=== PATIENT | male | born 1955 | race Caucasian/White ===

== ENCOUNTER 2017-06-28 15:40 | Emergency (ER) | payer OTHER ==
[~2017-06-28] VITALS: Ht 170.2 cm; Wt 86.3 kg
[2017-06-28] MEDS ORDERED: METO-325 PO (16:08)
[2017-06-28] MEDS ORDERED: CLOT15CR5 TP (16:08)
[2017-06-28] MEDS ORDERED: PRAV40 PO (16:08)
[2017-06-28] MEDS ORDERED: DOXA2TAB PO (16:08)
[2017-06-28] MEDS ORDERED: ASPI-556 PO (16:08)
[2017-06-28] MEDS ORDERED: LOSA50TA37 PO (16:08)
[2017-06-28] MEDS ORDERED: NITR.4 SL (16:14)
[2017-06-28 19:10] LABS: BASOPHILS % (AUTO) 0.3 % (0.0-2.0); EOSINOPHILS % (AUTO) 0.9 % (1.0-6.0); HEMATOCRIT 39.8 % (41-53); HEMOGLOBIN 13.3 g/dL (13.5-17.5); LYMPHOCYTES # (AUTO) 2.2 K/uL (1.0-4.8); LYMPHOCYTES % (AUTO) 23.3 % (22.0-44.0); MEAN CORPUSCULAR HEMOGLOBIN 29.9 pg (26.0-34.0); MEAN CORPUSCULAR HGB CONC 33.3 G/dL (31.0-37.0); MEAN CORPUSCULAR VOLUME 90 fL (80-100); MONOCYTES # (AUTO) 0.3 K/uL (0.1-1.0); MONOCYTES % (AUTO) 3.3 % (2.0-9.0); NEUTROPHILS # (AUTO) 6.7 K/uL (1.8-7.7); NEUTROPHILS % (AUTO) 72.2 % (40.0-70.0); PLATELET COUNT (AUTO) 255 K/uL (150-450); RED BLOOD CELL COUNT(AUTO) 4.44 MIL/uL (4.50-5.90); WHITE BLOOD COUNT (AUTO) 9.3 K/uL (4.5-11.0)
[2017-06-28] MEDS ORDERED: ASPIRIN 325 MG EC TABLET PO ONE (19:15)
[2017-06-28] MEDS ORDERED: NITROGLYCERIN 2% (1 GM=INCH) PACKET TP ONE (19:15)
[2017-06-28] MEDS ORDERED: DEXAMETHASONE SOD PHOS 4 MG/ML 5 ML VIAL IVP ONE (19:15)
[2017-06-28] MEDS ORDERED: FUROSEMIDE 40 MG/4 ML VIAL IVP ONE (19:15)
[2017-06-28 19:20] LABS: ANION GAP 9 mmol/L (8-16); CALCIUM, TOTAL 8.6 mg/dL (8.8-10.5); CARBON DIOXIDE 27 mmol/L (22-29); CHLORIDE 102 mmol/L (98-107); GLOMERULAR FILTR. RATE CALC > 60 mL/min (>60); POTASSIUM 3.3 mmol/L (3.5-5.1); SODIUM SERUM 138 mmol/L (136-145); UREA NITROGEN, BLOOD 10 mg/dL (7-18)
[2017-06-28 19:26] LABS: ALANINE AMINOTRANSFERASE 26 U/L (12-78); ALBUMIN 2.6 g/dL (3.4-5.0); ASPARTATE AMINOTRANSFERASE 17 U/L (15-37); BILIRUBIN,TOTAL 0.2 mg/dL (0.1-1.0); TOTAL PROTEIN, SERUM 6.8 g/dL (6.4-8.2)
[2017-06-28 19:31] LABS: B-TYPE NATRIURETIC PEPTIDE < 5 pg/mL (0-100)
[2017-06-28 20:00] VITALS: BP 129/49
[2017-06-28 20:36] LABS: GLUCOSE, URINE (UA) NEGATIVE (NEGATIVE); KETONES,URINE NEGATIVE (NEGATIVE); LEUKOCYTE ESTERASE ,URINE NEGATIVE (NEGATIVE); OCCULT BLOOD,URINE NEGATIVE (NEGATIVE); PROTEIN,URINE NEGATIVE (NEGATIVE)
[2017-06-28 20:37] LABS: ADD UA MICROSCOPIC NO; APPEARANCE,URINE CLEAR (CLEAR)
== END 2017-06-28 20:54 | disposition home or self-care (01) ==
LOC: EMS 15:46
DX: L50.0 Allergic urticaria (principal); R07.2 Precordial pain; E78.00 Pure hypercholesterolemia, unspecified; I10 Essential (primary) hypertension; F17.210 Nicotine dependence, cigarettes, uncomplicated; Z86.73 Personal history of transient ischemic attack (TIA), and cerebral infarction without residual deficits; Z79.82 Long term (current) use of aspirin
CPT/HCPCS: 36415; 71010; 80053; 81003; 83690; 83880; 84484; 85025; 93005; 96374; 96375; 99285; J1100; J1940

== ENCOUNTER 2019-02-01 23:02 | Emergency (ER) | payer OTHER ==
[~2019-02-01] VITALS: Ht 170.2 cm; Wt 85.9 kg
[~2019-02-01 23:02] MED LIST: ASPI-556 PO; CLOT15CR5 TP; DOXA2TAB PO; LOSA50TA64 PO; METO-558 PO; NITR.4 SL; PRAV40TA4 PO
[2019-02-01] MEDS ORDERED: OMEP20 PO (23:14)
[2019-02-01] MEDS ORDERED: CHOL200059 PO (23:14)
[2019-02-01] MEDS ORDERED: ATOR40TA28 PO (23:14)
[2019-02-01] MEDS ORDERED: CYCL10 PO (23:14)
[2019-02-01] MEDS ORDERED: METO50 PO (23:14)
[2019-02-02] MEDS ORDERED: SULFAMETHOX/TRIMETH DS 800-160 MG/TABLET PO ONE (03:15)
[2019-02-02] MEDS ORDERED: CEPHALEXIN MONOHYDRATE 500 MG CAPSULE PO ONE (03:15)
[2019-02-02 03:58] VITALS: BP 137/88
== END 2019-02-02 03:59 | disposition home or self-care (01) ==
LOC: EMS 23:03
DX: S50.862A Insect bite (nonvenomous) of left forearm, initial encounter (principal); S30.861A Insect bite (nonvenomous) of abdominal wall, initial encounter; L73.9 Follicular disorder, unspecified; K21.9 Gastro-esophageal reflux disease without esophagitis; E78.00 Pure hypercholesterolemia, unspecified; I10 Essential (primary) hypertension; Z86.73 Personal history of transient ischemic attack (TIA), and cerebral infarction without residual deficits; Z79.82 Long term (current) use of aspirin; W57.XXXA Bitten or stung by nonvenomous insect and other nonvenomous arthropods, initial encounter; Y93.89 Activity, other specified; Y92.89 Other specified places as the place of occurrence of the external cause; Y99.8 Other external cause status

== ENCOUNTER 2019-03-18 20:30 | Emergency (ER) | payer OTHER ==
[~2019-03-18] VITALS: Ht 170.2 cm; Wt 85.9 kg
[~2019-03-18 20:30] MED LIST changes: +ATOR40TA28 PO; +CHOL200059 PO; -CLOT15CR5 TP; +CYCL10 PO; -LOSA50TA64 PO; -METO-558 PO; +METO50 PO; +OMEP20 PO; -PRAV40TA4 PO
[2019-03-18] MEDS ORDERED: CEPHALEXIN MONOHYDRATE 500 MG CAPSULE PO ONE (21:45)
[2019-03-18] MEDS ORDERED: IBUPROFEN 800 MG TABLET PO ONE (21:45)
[2019-03-18 21:52] VITALS: BP 140/90
== END 2019-03-18 21:54 | disposition home or self-care (01) ==
LOC: EMS 20:30
DX: L03.114 Cellulitis of left upper limb (principal); K21.9 Gastro-esophageal reflux disease without esophagitis; I10 Essential (primary) hypertension; E78.00 Pure hypercholesterolemia, unspecified; F17.210 Nicotine dependence, cigarettes, uncomplicated; Z79.82 Long term (current) use of aspirin

== ENCOUNTER 2019-08-21 03:25 | Inpatient (IN) | payer OTHER ==
[~2019-08-21] VITALS: Ht 170.2 cm; Wt 82.7 kg
[~2019-08-21 03:25] MED LIST changes: -NITR.4 SL; +NITR0.4T52 SL
[2019-08-21] MEDS ORDERED: DOXYCYCLINE HYCLATE 100 MG CAPSULE PO ONE (03:45)
[2019-08-21 04:18] LABS: BASOPHILS % (AUTO) 0.7 % (0.0-2.0); EOSINOPHILS % (AUTO) 3.2 % (1.0-6.0); HEMATOCRIT 41.2 % (41-53); HEMOGLOBIN 13.4 g/dL (13.5-17.5); LYMPHOCYTES # (AUTO) 2.5 K/uL (1.0-4.8); LYMPHOCYTES % (AUTO) 28.6 % (22.0-44.0); MEAN CORPUSCULAR HEMOGLOBIN 30.1 pg (26.0-34.0); MEAN CORPUSCULAR HGB CONC 32.6 G/dL (31.0-37.0); MEAN CORPUSCULAR VOLUME 92 fL (80-100); MONOCYTES # (AUTO) 0.8 K/uL (0.1-1.0); NEUTROPHILS # (AUTO) 5.1 K/uL (1.8-7.7); NEUTROPHILS % (AUTO) 58.5 % (40.0-70.0); PLATELET COUNT (AUTO) 216 K/uL (150-450); RED BLOOD CELL COUNT(AUTO) 4.46 MIL/uL (4.50-5.90); RED CELL DISTRIBUTION WIDTH 13.4 % (11.5-14.5)
[2019-08-21 04:31] LABS: GLUCOSE,POINT OF CARE 100 MG/DL (70-110)
[2019-08-21 04:34] LABS: AMMONIA 40 umol/L (11-32)
[2019-08-21 04:45] LABS: TROPONIN I < 0.02 ng/mL (0.00-0.05)
[2019-08-21 04:50] LABS: ANION GAP 7 mmol/L (8-16); CALCIUM, TOTAL 8.7 mg/dL (8.8-10.5); CARBON DIOXIDE 29 mmol/L (22-29); CHLORIDE 106 mmol/L (98-107); CREATININE 1.16 mg/dL (0.60-1.30); GLOMERULAR FILTR. RATE CALC > 60 mL/min (>60); GLUCOSE,RANDOM 91 mg/dL (70-110); POTASSIUM 3.7 mmol/L (3.5-5.1); SODIUM SERUM 142 mmol/L (136-145); UREA NITROGEN, BLOOD 15 mg/dL (7-18)
[2019-08-21 04:57] LABS: ALANINE AMINOTRANSFERASE 26 U/L (12-78); ALBUMIN 3.4 g/dL (3.4-5.0); ALKALINE PHOSPHATASE 116 U/L (46-116); ASPARTATE AMINOTRANSFERASE 12 U/L (15-37); BILIRUBIN,TOTAL 0.4 mg/dL (0.1-1.0); TOTAL PROTEIN, SERUM 6.6 g/dL (6.4-8.2)
[2019-08-21] MEDS ORDERED: ACETAMINOPHEN 325 MG TABLET PO PRN ×2 (06:15→10:15)
[2019-08-21] MEDS ORDERED: ONDANSETRON HCL 4 MG/2 ML VIAL IVP PRN (06:15)
[2019-08-21 10:11] LABS: APPEARANCE,URINE CLEAR (CLEAR); GLUCOSE, URINE (UA) NEGATIVE (NEGATIVE); KETONES,URINE NEGATIVE (NEGATIVE); LEUKOCYTE ESTERASE ,URINE NEGATIVE (NEGATIVE); NITRATE,URINE NEGATIVE (NEGATIVE); OCCULT BLOOD,URINE NEGATIVE (NEGATIVE); PH,URINE 5.5 (5.0-8.0); PROTEIN,URINE NEGATIVE (NEGATIVE); UROBILINOGEN,URINE 0.2 mg/dL (<=1.0)
[2019-08-21 10:15] LABS: BILIRUBIN,URINE PRELIM. POSITIVE (NEGATIVE)
[2019-08-21] MEDS ORDERED: INSULIN LISPRO 100 UNITS/ML SQ PRN (10:15)
[2019-08-21] MEDS ORDERED: DEXTROSE 50%-WATER 25 GM/50 ML SYRINGE IVP PRN (10:15)
[2019-08-21 10:16] LABS: AMPHET/METH SCREEN,URINE POSITIVE (NEGATIVE); BARBITURATE SCREEN, URINE NEGATIVE (NEGATIVE); BENZODIAZEPINES SCREEN,URINE NEGATIVE (NEGATIVE); CANNABINOID SCREEN,URINE NEGATIVE (NEGATIVE); COCAINE SCREEN,URINE NEGATIVE (NEGATIVE); METHADONE SCREEN, URINE NEGATIVE (NEGATIVE); OPIATE SCREEN,URINE NEGATIVE (NEGATIVE)
[2019-08-21 10:17] LABS: PHENCYCLIDINE SCREEN,URINE NEGATIVE (NEGATIVE)
[2019-08-21] MEDS: ASPIRIN 81 MG CHEWABLE TABLET PO SCH (11:53)
[2019-08-21] MEDS: ATORVASTATIN CALCIUM 20 MG TABLET PO SCH (12:06)
[2019-08-21] MEDS: HEPARIN SODIUM,PORCINE 5,000 UNITS/ML VIAL SQ SCH ×2 (16:08→23:59)
[2019-08-21 18:10] VITALS: BP 129/84
[2019-08-21] MEDS ORDERED: PNEUMOCOCCAL VACCINE POLYVALENT 0.5 ML VIAL [PPSV23] IM ONE (18:45)
[2019-08-21] MEDS: DOCUSATE SODIUM 100 MG CAPSULE PO SCH (20:55)
[2019-08-21 23:54] VITALS: BP 146/90
[2019-08-22 05:12] VITALS: BP 146/41
[2019-08-22 06:31] LABS: GLUCOMETER DEV NAME(LOC) 5N.1; GLUCOSE,POINT OF CARE 89 MG/DL (70-110)
[2019-08-22] MEDS: HEPARIN SODIUM,PORCINE 5,000 UNITS/ML VIAL SQ SCH ×2 (08:00→15:24)
[2019-08-22] MEDS ORDERED: FAMOTIDINE 20 MG TABLET PO SCH (09:00)
[2019-08-22 09:33] VITALS: BP 131/83
[2019-08-22] MEDS: ASPIRIN 81 MG CHEWABLE TABLET PO SCH (10:02)
[2019-08-22] MEDS: DOCUSATE SODIUM 100 MG CAPSULE PO SCH (10:03)
[2019-08-22] MEDS: ATORVASTATIN CALCIUM 20 MG TABLET PO SCH (10:03)
[2019-08-22 11:33] VITALS: BP 133/79
[2019-08-22 12:46] LABS: GLUCOMETER DEV NAME(LOC) 5S.1; GLUCOSE,POINT OF CARE 105 MG/DL (70-110)
[2019-08-22 15:40] VITALS: BP 145/84
[2019-08-22 17:56] LABS: GLUCOMETER DEV NAME(LOC) 5S.2A; GLUCOSE,POINT OF CARE 97 MG/DL (70-110)
[2019-08-23 05:11] LABS: GLUCOMETER DEV NAME(LOC) 5N.1; GLUCOSE,POINT OF CARE 91 MG/DL (70-110)
== END 2019-08-22 20:00 | disposition home or self-care (01) | DRG 47 ==
LOC: EMS 03:25 → 5S 17:53
PROVIDERS: ADMIT Internal Medicine; ATTEND Internal Medicine
DX: G45.9 Transient cerebral ischemic attack, unspecified (principal); E11.9 Type 2 diabetes mellitus without complications; L03.90 Cellulitis, unspecified; E78.00 Pure hypercholesterolemia, unspecified; E78.5 Hyperlipidemia, unspecified; F15.90 Other stimulant use, unspecified, uncomplicated; I10 Essential (primary) hypertension; K21.9 Gastro-esophageal reflux disease without esophagitis; H53.8 Other visual disturbances; R27.0 Ataxia, unspecified; F17.210 Nicotine dependence, cigarettes, uncomplicated; N40.0 Benign prostatic hyperplasia without lower urinary tract symptoms; T63.301A Toxic effect of unspecified spider venom, accidental (unintentional), initial encounter; Z91.19 Patient's noncompliance with other medical treatment and regimen; Z79.899 Other long term (current) drug therapy; Z79.82 Long term (current) use of aspirin; Y92.89 Other specified places as the place of occurrence of the external cause; Z71.6 Tobacco abuse counseling
CPT/HCPCS: 70450; 70544; 70551; 92523; 93005; 97116; 97162; 97165; 97535; G0480; J1644

== ENCOUNTER 2019-09-23 23:38 | Emergency (ER) | payer OTHER ==
[~2019-09-23] VITALS: Ht 170.2 cm; Wt 81.8 kg
[~2019-09-23 23:38] MED LIST changes: -CYCL10 PO; -METO50 PO
[2019-09-24 00:01] LABS: GLUCOSE,POINT OF CARE 86 MG/DL (70-110)
[2019-09-24] MEDS ORDERED: METF-805 PO (00:01)
[2019-09-24] MEDS ORDERED: ALBU0.212 IH (00:01)
[2019-09-24] MEDS ORDERED: MONT5TAB13 PO (00:01)
[2019-09-24] MEDS ORDERED: LEVE500T8 PO (00:01)
[2019-09-24] MEDS ORDERED: METO50TA18 PO (00:01)
[2019-09-24] MEDS ORDERED: LOSA50TA65 PO (00:01)
[2019-09-24 00:35] LABS: BASOPHILS % (AUTO) 0.4 % (0.0-2.0); EOSINOPHILS % (AUTO) 3.1 % (1.0-6.0); HEMATOCRIT 39.9 % (41-53); HEMOGLOBIN 13.4 g/dL (13.5-17.5); LYMPHOCYTES # (AUTO) 2.4 K/uL (1.0-4.8); MEAN CORPUSCULAR HEMOGLOBIN 30.4 pg (26.0-34.0); MEAN CORPUSCULAR HGB CONC 33.6 G/dL (31.0-37.0); MEAN CORPUSCULAR VOLUME 91 fL (80-100); MONOCYTES # (AUTO) 0.8 K/uL (0.1-1.0); MONOCYTES % (AUTO) 9.2 % (2.0-9.0); NEUTROPHILS # (AUTO) 5.5 K/uL (1.8-7.7); NEUTROPHILS % (AUTO) 60.3 % (40.0-70.0); PLATELET COUNT (AUTO) 207 K/uL (150-450); RED CELL DISTRIBUTION WIDTH 13.5 % (11.5-14.5)
[2019-09-24 00:49] LABS: ANION GAP 2 mmol/L (8-16); CARBON DIOXIDE 33 mmol/L (22-29); CHLORIDE 104 mmol/L (98-107); CREATININE 1.04 mg/dL (0.60-1.30); GLUCOSE,RANDOM 96 mg/dL (70-110); POTASSIUM 3.9 mmol/L (3.5-5.1); SODIUM SERUM 139 mmol/L (136-145); UREA NITROGEN, BLOOD 12 mg/dL (7-18)
[2019-09-24 00:50] LABS: CALCIUM, TOTAL 8.5 mg/dL (8.8-10.5); GLOMERULAR FILTR. RATE CALC > 60 mL/min (>60)
[2019-09-24 00:53] LABS: ALANINE AMINOTRANSFERASE 28 U/L (12-78); ALBUMIN 3.3 g/dL (3.4-5.0); ALKALINE PHOSPHATASE 101 U/L (46-116); ASPARTATE AMINOTRANSFERASE 13 U/L (15-37); BILIRUBIN,TOTAL 0.4 mg/dL (0.1-1.0); TOTAL PROTEIN, SERUM 6.8 g/dL (6.4-8.2)
[2019-09-24 02:43] VITALS: BP 127/88
== END 2019-09-24 02:51 | disposition home or self-care (01) ==
LOC: EMS 23:40
DX: L73.2 Hidradenitis suppurativa (principal); E78.00 Pure hypercholesterolemia, unspecified; I10 Essential (primary) hypertension; K21.9 Gastro-esophageal reflux disease without esophagitis; F17.210 Nicotine dependence, cigarettes, uncomplicated; Z79.899 Other long term (current) drug therapy; Z86.73 Personal history of transient ischemic attack (TIA), and cerebral infarction without residual deficits; Z98.890 Other specified postprocedural states
CPT/HCPCS: 93005

== ENCOUNTER 2019-11-26 21:27 | Emergency (ER) | payer OTHER ==
[~2019-11-26] VITALS: Ht 168.9 cm; Wt 83.2 kg
[~2019-11-26 21:27] MED LIST changes: +ALBU0.212 IH; +CHOL200016 PO; -CHOL200059 PO; +LEVE500T8 PO; +LOSA50TA65 PO; +METF-805 PO; +METO50TA18 PO; +MONT5TAB13 PO
[2019-11-26 22:22] LABS: GLUCOSE,POINT OF CARE 145 MG/DL (70-110)
[2019-11-27] MEDS ORDERED: FLUC100T PO (00:08)
[2019-11-27] MEDS ORDERED: UMEC62.5 IH (00:08)
[2019-11-27 00:20] LABS: GLUCOSE,POINT OF CARE 132 MG/DL (70-110)
[2019-11-27] MEDS ORDERED: LIDOCAINE/PRILOCAINE 2.5% 30 GM CREAM TP ONE (01:30)
[2019-11-27] MEDS ORDERED: LORazepam 1 MG TABLET PO ONE (03:00)
[2019-11-27] MEDS ORDERED: FentaNYL CITRATE-PF 100 MCG/2 ML VIAL IVP ONE (03:30)
[2019-11-27 04:05] VITALS: BP 122/64
[2019-11-27] MEDS ORDERED: CEPHALEXIN MONOHYDRATE 500 MG CAPSULE PO ONE (04:45)
[2019-11-27] MEDS ORDERED: SULFAMETHOX/TRIMETH DS 800-160 MG/TABLET PO ONE (04:45)
== END 2019-11-27 05:02 | disposition home or self-care (01) ==
LOC: EMS 21:28
DX: L02.412 Cutaneous abscess of left axilla (principal); J44.9 Chronic obstructive pulmonary disease, unspecified; E11.9 Type 2 diabetes mellitus without complications; K21.9 Gastro-esophageal reflux disease without esophagitis; E78.00 Pure hypercholesterolemia, unspecified; I10 Essential (primary) hypertension; F17.210 Nicotine dependence, cigarettes, uncomplicated; Z86.73 Personal history of transient ischemic attack (TIA), and cerebral infarction without residual deficits; Z79.82 Long term (current) use of aspirin; Z79.84 Long term (current) use of oral hypoglycemic drugs
CPT/HCPCS: 10060; 82962; 96374; 99284; J3010

== ENCOUNTER 2020-05-07 12:31 | Emergency (ER) | payer OTHER ==
[~2020-05-07] VITALS: Ht 175.3 cm; Wt 95.5 kg
[~2020-05-07 12:31] MED LIST changes: +FLUC100T PO; -LEVE500T8 PO; +UMEC62.5 IH
[2020-05-07 13:09] VITALS: BP 123/75
== END 2020-05-07 13:27 | disposition home or self-care (01) ==
LOC: EMS 12:41
DX: L03.012 Cellulitis of left finger (principal); F17.210 Nicotine dependence, cigarettes, uncomplicated; J44.9 Chronic obstructive pulmonary disease, unspecified; E11.9 Type 2 diabetes mellitus without complications; K21.9 Gastro-esophageal reflux disease without esophagitis; E78.00 Pure hypercholesterolemia, unspecified; I10 Essential (primary) hypertension; Z86.73 Personal history of transient ischemic attack (TIA), and cerebral infarction without residual deficits; Z79.82 Long term (current) use of aspirin; Z79.84 Long term (current) use of oral hypoglycemic drugs
CPT/HCPCS: 10060; 99406

== ENCOUNTER 2020-05-10 01:46 | Inpatient (IN) | payer OTHER ==
[~2020-05-10] VITALS: Ht 170.2 cm; Wt 91.7 kg
[2020-05-10] MEDS ORDERED: CefTRIAXone 1 GM/DEXTROSE 50 ML IV ONE (03:00)
[2020-05-10] MEDS ORDERED: VANCOMYCIN HCL 1 GM/D5% WATER 200 ML IV ONE ×2 (03:00→19:00)
[2020-05-10 04:09] LABS: BASOPHILS % (AUTO) 0.6 % (0.0-2.0); EOSINOPHILS % (AUTO) 4.7 % (1.0-6.0); HEMATOCRIT 41.5 % (41-53); HEMOGLOBIN 13.9 g/dL (13.5-17.5); LYMPHOCYTES # (AUTO) 2.7 K/uL (1.0-4.8); LYMPHOCYTES % (AUTO) 30.6 % (22.0-44.0); MEAN CORPUSCULAR HEMOGLOBIN 30.3 pg (26.0-34.0); MEAN CORPUSCULAR HGB CONC 33.4 G/dL (31.0-37.0); MEAN CORPUSCULAR VOLUME 91 fL (80-100); MONOCYTES # (AUTO) 0.8 K/uL (0.1-1.0); MONOCYTES % (AUTO) 9.6 % (2.0-9.0); NEUTROPHILS # (AUTO) 4.7 K/uL (1.8-7.7); NEUTROPHILS % (AUTO) 54.5 % (40.0-70.0); PLATELET COUNT (AUTO) 216 K/uL (150-450); RED BLOOD CELL COUNT(AUTO) 4.57 MIL/uL (4.50-5.90); RED CELL DISTRIBUTION WIDTH 13.5 % (11.5-14.5)
[2020-05-10 04:20] LABS: CALCIUM, TOTAL 8.5 mg/dL (8.8-10.5); CREATININE 1.54 mg/dL (0.60-1.30); POTASSIUM 4.3 mmol/L (3.5-5.1)
[2020-05-10 04:25] LABS: ALBUMIN 3.6 g/dL (3.4-5.0); BILIRUBIN,TOTAL 0.5 mg/dL (0.1-1.0)
[2020-05-10] MEDS ORDERED: 0.9% SODIUM CHLORIDE 10 ML SYRINGE IVP PRN (04:45)
[2020-05-10] MEDS ORDERED: ONDANSETRON HCL 4 MG/2 ML VIAL IVP PRN ×2 (04:45→16:15)
[2020-05-10] MEDS ORDERED: ACETAMINOPHEN 325 MG TABLET PO PRN (04:45)
[2020-05-10 12:26] LABS: GLUCOSE,POINT OF CARE 101 MG/DL (70-110)
[2020-05-10] MEDS ORDERED: MAGNESIUM HYDROXIDE SUSPENSION 30 ML UDCUP PO PRN (16:15)
[2020-05-10] MEDS ORDERED: DEXTROSE 50%-WATER 25 GM/50 ML SYRINGE IVP PRN (16:15)
[2020-05-10] MEDS ORDERED: ZOLPIDEM TARTRATE 5 MG TABLET PO PRN (16:15)
[2020-05-10] MEDS ORDERED: BISACODYL 10 MG RECTAL RECTAL SUPPOSITORY PR PRN (16:15)
[2020-05-10] MEDS ORDERED: SODIUM CHLORIDE 0.9% 1,000 ML IV ONE (16:15)
[2020-05-10] MEDS ORDERED: HYDROCODONE/ACETAMINOPHEN 5-325 MG TABLET PO PRN (16:15)
[2020-05-10] MEDS ORDERED: MORPHINE SULFATE 2 MG/ML SYRINGE IVP PRN (16:15)
[2020-05-10] MEDS: DOCUSATE SODIUM 100 MG CAPSULE PO SCH (21:00)
[2020-05-10 22:05] VITALS: BP 133/70
[2020-05-11] MEDS: HEPARIN SODIUM,PORCINE 5,000 UNITS/ML VIAL SQ SCH ×3 (01:52→16:53)
[2020-05-11 05:02] VITALS: BP 132/78
[2020-05-11 05:05] LABS: GLUCOMETER DEV NAME(LOC) 6S.1; GLUCOSE,POINT OF CARE 106 MG/DL (70-110)
[2020-05-11 06:55] LABS: GLUCOMETER DEV NAME(LOC) 6S.1; GLUCOSE,POINT OF CARE 103 MG/DL (70-110)
[2020-05-11 08:13] LABS: BASOPHILS % (AUTO) 0.4 % (0.0-2.0); EOSINOPHILS % (AUTO) 2.9 % (1.0-6.0); HEMATOCRIT 43.1 % (41-53); HEMOGLOBIN 14.5 g/dL (13.5-17.5); LYMPHOCYTES # (AUTO) 0.6 K/uL (1.0-4.8); LYMPHOCYTES % (AUTO) 7.6 % (22.0-44.0); MEAN CORPUSCULAR HEMOGLOBIN 30.2 pg (26.0-34.0); MEAN CORPUSCULAR HGB CONC 33.6 G/dL (31.0-37.0); MEAN CORPUSCULAR VOLUME 90 fL (80-100); NEUTROPHILS # (AUTO) 6.5 K/uL (1.8-7.7); NEUTROPHILS % (AUTO) 77.1 % (40.0-70.0); PLATELET COUNT (AUTO) 221 K/uL (150-450); RED CELL DISTRIBUTION WIDTH 13.6 % (11.5-14.5)
[2020-05-11 08:34] LABS: ALANINE AMINOTRANSFERASE 40 U/L (12-78); ALBUMIN 3.3 g/dL (3.4-5.0); ALKALINE PHOSPHATASE 87 U/L (46-116); ANION GAP 9 mmol/L (8-16); ASPARTATE AMINOTRANSFERASE 27 U/L (15-37); BILIRUBIN,TOTAL 0.6 mg/dL (0.1-1.0); CALCIUM, TOTAL 8.7 mg/dL (8.8-10.5); CARBON DIOXIDE 24 mmol/L (22-29); CHLORIDE 100 mmol/L (98-107); CREATININE 0.99 mg/dL (0.60-1.30); GLOMERULAR FILTR. RATE CALC > 60 mL/min (>60); GLUCOSE,RANDOM 115 mg/dL (70-110); POTASSIUM 4.5 mmol/L (3.5-5.1); SODIUM SERUM 133 mmol/L (136-145); TOTAL PROTEIN, SERUM 7.3 g/dL (6.4-8.2); UREA NITROGEN, BLOOD 12 mg/dL (7-18)
[2020-05-11 08:39] VITALS: BP 132/80
[2020-05-11] MEDS: VANCOMYCIN HCL 750 MG in DEXTROSE 5%-WATER 250 ML IV SCH ×2 (08:48→20:40)
[2020-05-11] MEDS: DOCUSATE SODIUM 100 MG CAPSULE PO SCH ×2 (08:49→20:39)
[2020-05-11] MEDS: ASPIRIN 81 MG EC TABLET PO SCH (08:50)
[2020-05-11] MEDS: ATORVASTATIN CALCIUM 40 MG TABLET PO SCH (08:50)
[2020-05-11] MEDS: CHOLECALCIFEROL (VIT D3) 2,000 UNITS [50 MCG] TABLET PO SCH (08:50)
[2020-05-11] MEDS: DOXAZOSIN MESYLATE 2 MG TABLET PO SCH (08:50)
[2020-05-11] MEDS: PANTOPRAZOLE SODIUM 40 MG DR TABLET PO SCH (08:50)
[2020-05-11] MEDS: MONTELUKAST SODIUM 10 MG TABLET PO SCH (08:50)
[2020-05-11] MEDS: METOPROLOL TARTRATE 50 MG TABLET PO SCH (08:51)
[2020-05-11] MEDS: LOSARTAN POTASSIUM 50 MG TABLET PO SCH (08:51)
[2020-05-11 11:39] LABS: GLUCOMETER DEV NAME(LOC) 6N.2; GLUCOSE,POINT OF CARE 141 MG/DL (70-110)
[2020-05-11 11:55] VITALS: BP 121/69
[2020-05-11 15:25] VITALS: BP 105/56
[2020-05-11 20:15] LABS: GLUCOMETER DEV NAME(LOC) 6N.2; GLUCOSE,POINT OF CARE 109 MG/DL (70-110)
[2020-05-11 20:34] VITALS: BP 106/58
[2020-05-11] MEDS: ACETAMINOPHEN 325 MG TABLET PO PRN (20:40)
[2020-05-11 21:45] LABS: GLUCOMETER DEV NAME(LOC) 6N.2; GLUCOSE,POINT OF CARE 90 MG/DL (70-110)
[2020-05-11 23:40] VITALS: BP 98/72
[2020-05-12] MEDS: HEPARIN SODIUM,PORCINE 5,000 UNITS/ML VIAL SQ SCH ×4 (00:30→23:18)
[2020-05-12 04:30] VITALS: BP 135/79
[2020-05-12 06:27] LABS: GLUCOMETER DEV NAME(LOC) 6S.1; GLUCOSE,POINT OF CARE 103 MG/DL (70-110)
[2020-05-12 07:31] LABS: HEMATOCRIT 46.1 % (41-53); HEMOGLOBIN 15.4 g/dL (13.5-17.5); MEAN CORPUSCULAR HGB CONC 33.3 G/dL (31.0-37.0); MEAN CORPUSCULAR VOLUME 90 fL (80-100); PLATELET COUNT (AUTO) 215 K/uL (150-450); RED BLOOD CELL COUNT(AUTO) 5.13 MIL/uL (4.50-5.90); RED CELL DISTRIBUTION WIDTH 13.6 % (11.5-14.5)
[2020-05-12 07:40] VITALS: BP 114/71
[2020-05-12 07:44] LABS: ANION GAP 13 mmol/L (8-16); CALCIUM, TOTAL 8.6 mg/dL (8.8-10.5); CARBON DIOXIDE 24 mmol/L (22-29); CHLORIDE 99 mmol/L (98-107); CREATININE 1.17 mg/dL (0.60-1.30); GLOMERULAR FILTR. RATE CALC > 60 mL/min (>60); GLUCOSE,RANDOM 110 mg/dL (70-110); POTASSIUM 4.5 mmol/L (3.5-5.1); SODIUM SERUM 136 mmol/L (136-145); UREA NITROGEN, BLOOD 14 mg/dL (7-18); VANCOMYCIN,RANDOM 6.9 mcg/mL (25.0-50.0)
[2020-05-12] MEDS: ASPIRIN 81 MG EC TABLET PO SCH (08:12)
[2020-05-12] MEDS: ATORVASTATIN CALCIUM 40 MG TABLET PO SCH (08:13)
[2020-05-12] MEDS: MONTELUKAST SODIUM 10 MG TABLET PO SCH (08:13)
[2020-05-12] MEDS: DOCUSATE SODIUM 100 MG CAPSULE PO SCH ×2 (08:13→20:04)
[2020-05-12] MEDS: DOXAZOSIN MESYLATE 2 MG TABLET PO SCH (08:13)
[2020-05-12] MEDS: METOPROLOL TARTRATE 50 MG TABLET PO SCH (08:13)
[2020-05-12] MEDS: CHOLECALCIFEROL (VIT D3) 2,000 UNITS [50 MCG] TABLET PO SCH (08:13)
[2020-05-12] MEDS: PANTOPRAZOLE SODIUM 40 MG DR TABLET PO SCH (08:13)
[2020-05-12] MEDS: LOSARTAN POTASSIUM 50 MG TABLET PO SCH (08:13)
[2020-05-12] MEDS: VANCOMYCIN HCL 750 MG in DEXTROSE 5%-WATER 250 ML IV SCH (08:14)
[2020-05-12 09:26] LABS: BAND NEUTROPHILS % (MANUAL) 5 % (0-5); EOSINOPHILS % (MANUAL) 2 % (1-6); LYMPHOCYTES % (MANUAL) 18 % (22-44); MONOCYTES % (MANUAL) 17 % (2-9); SEGMENTED NEUTROPHILS % 58 % (40-70)
[2020-05-12 11:24] VITALS: BP 100/63
[2020-05-12 15:21] VITALS: BP 90/56
[2020-05-12 17:26] LABS: GLUCOMETER DEV NAME(LOC) 6N.2; GLUCOSE,POINT OF CARE 88 MG/DL (70-110)
[2020-05-12 17:29] LABS: GLUCOMETER DEV NAME(LOC) 6S.1; GLUCOSE,POINT OF CARE 99 MG/DL (70-110)
[2020-05-12] MEDS ORDERED: VANCOMYCIN HCL 1.25 GM in DEXTROSE 5%-WATER 250 ML IV SCH (20:00)
[2020-05-12] MEDS: VANCOMYCIN HCL 1.25 GM in DEXTROSE 5%-WATER 250 ML IV SCH (20:04)
[2020-05-12 20:30] VITALS: BP 113/63
[2020-05-12] MEDS: ACETAMINOPHEN 325 MG TABLET PO PRN (20:49)
[2020-05-12 20:53] LABS: GLUCOMETER DEV NAME(LOC) 6N.1; GLUCOSE,POINT OF CARE 161 MG/DL (70-110)
[2020-05-13] VITALS (7 sets, daily range): BP systolic 98–146; BP diastolic 59–89
[2020-05-13] MEDS: ACETAMINOPHEN 325 MG TABLET PO PRN (04:48)
[2020-05-13 06:18] LABS: GLUCOMETER DEV NAME(LOC) 6N.1; GLUCOSE,POINT OF CARE 103 MG/DL (70-110)
[2020-05-13 07:23] LABS: BASOPHILS % (AUTO) 0.7 % (0.0-2.0); EOSINOPHILS % (AUTO) 0.7 % (1.0-6.0); HEMATOCRIT 45.6 % (41-53); HEMOGLOBIN 15.4 g/dL (13.5-17.5); LYMPHOCYTES # (AUTO) 1.4 K/uL (1.0-4.8); LYMPHOCYTES % (AUTO) 22.1 % (22.0-44.0); MEAN CORPUSCULAR HEMOGLOBIN 30.1 pg (26.0-34.0); MEAN CORPUSCULAR HGB CONC 33.7 G/dL (31.0-37.0); MEAN CORPUSCULAR VOLUME 89 fL (80-100); MONOCYTES # (AUTO) 1.2 K/uL (0.1-1.0); MONOCYTES % (AUTO) 19.2 % (2.0-9.0); NEUTROPHILS # (AUTO) 3.7 K/uL (1.8-7.7); NEUTROPHILS % (AUTO) 57.3 % (40.0-70.0); PLATELET COUNT (AUTO) 203 K/uL (150-450); RED BLOOD CELL COUNT(AUTO) 5.12 MIL/uL (4.50-5.90); RED CELL DISTRIBUTION WIDTH 13.7 % (11.5-14.5)
[2020-05-13 07:40] LABS: ANION GAP 11 mmol/L (8-16); CALCIUM, TOTAL 8.3 mg/dL (8.8-10.5); CARBON DIOXIDE 23 mmol/L (22-29); CHLORIDE 100 mmol/L (98-107); CREATININE 1.11 mg/dL (0.60-1.30); GLOMERULAR FILTR. RATE CALC > 60 mL/min (>60); GLUCOSE,RANDOM 109 mg/dL (70-110); POTASSIUM 4.2 mmol/L (3.5-5.1); SODIUM SERUM 134 mmol/L (136-145); UREA NITROGEN, BLOOD 16 mg/dL (7-18)
[2020-05-13] MEDS: DOCUSATE SODIUM 100 MG CAPSULE PO SCH ×2 (08:42→21:13)
[2020-05-13] MEDS: MONTELUKAST SODIUM 10 MG TABLET PO SCH (08:42)
[2020-05-13] MEDS: PANTOPRAZOLE SODIUM 40 MG DR TABLET PO SCH (08:42)
[2020-05-13] MEDS: ATORVASTATIN CALCIUM 40 MG TABLET PO SCH (08:42)
[2020-05-13] MEDS: DOXAZOSIN MESYLATE 2 MG TABLET PO SCH (08:42)
[2020-05-13] MEDS: ASPIRIN 81 MG EC TABLET PO SCH (08:42)
[2020-05-13] MEDS: CHOLECALCIFEROL (VIT D3) 2,000 UNITS [50 MCG] TABLET PO SCH (08:43)
[2020-05-13] MEDS: HEPARIN SODIUM,PORCINE 5,000 UNITS/ML VIAL SQ SCH ×2 (08:49→17:07)
[2020-05-13] MEDS: VANCOMYCIN HCL 1.25 GM in DEXTROSE 5%-WATER 250 ML IV SCH ×2 (10:44→21:18)
[2020-05-13] MEDS: INSULIN LISPRO 100 UNITS/ML SQ PRN (11:01)
[2020-05-13] MEDS ORDERED: SODIUM CHLORIDE 0.9% 1,000 ML IV ONE (11:45)
[2020-05-13 15:29] LABS: GLUCOMETER DEV NAME(LOC) 6N.1; GLUCOSE,POINT OF CARE 163 MG/DL (70-110)
[2020-05-13 18:56] LABS: APPEARANCE,URINE CLOUDY (CLEAR); BILIRUBIN,URINE NEGATIVE (NEGATIVE); GLUCOSE, URINE (UA) NEGATIVE (NEGATIVE); KETONES,URINE 15 mg/dL (NEGATIVE); LEUKOCYTE ESTERASE ,URINE NEGATIVE (NEGATIVE); NITRATE,URINE NEGATIVE (NEGATIVE); OCCULT BLOOD,URINE NEGATIVE (NEGATIVE); PROTEIN,URINE NEGATIVE (NEGATIVE); UROBILINOGEN,URINE 0.2 mg/dL (<=1.0)
[2020-05-13 20:12] LABS: GLUCOMETER DEV NAME(LOC) 6N.1; GLUCOSE,POINT OF CARE 94 MG/DL (70-110)
[2020-05-13] MEDS: LEVOFLOXACIN 750 MG TABLET PO SCH (21:14)
[2020-05-14] MEDS: HEPARIN SODIUM,PORCINE 5,000 UNITS/ML VIAL SQ SCH ×3 (01:24→16:29)
[2020-05-14 04:38] VITALS: BP 143/78
[2020-05-14 06:18] LABS: GLUCOMETER DEV NAME(LOC) 6N.1; GLUCOSE,POINT OF CARE 99 MG/DL (70-110)
[2020-05-14 06:20] LABS: BASOPHILS % (AUTO) 0.8 % (0.0-2.0); EOSINOPHILS % (AUTO) 1.4 % (1.0-6.0); HEMATOCRIT 43.7 % (41-53); HEMOGLOBIN 14.8 g/dL (13.5-17.5); LYMPHOCYTES # (AUTO) 1.9 K/uL (1.0-4.8); LYMPHOCYTES % (AUTO) 36.5 % (22.0-44.0); MEAN CORPUSCULAR HEMOGLOBIN 30.4 pg (26.0-34.0); MEAN CORPUSCULAR HGB CONC 33.9 G/dL (31.0-37.0); MEAN CORPUSCULAR VOLUME 90 fL (80-100); MONOCYTES % (AUTO) 19.2 % (2.0-9.0); NEUTROPHILS # (AUTO) 2.2 K/uL (1.8-7.7); NEUTROPHILS % (AUTO) 42.1 % (40.0-70.0); PLATELET COUNT (AUTO) 197 K/uL (150-450); RED BLOOD CELL COUNT(AUTO) 4.87 MIL/uL (4.50-5.90); RED CELL DISTRIBUTION WIDTH 13.6 % (11.5-14.5)
[2020-05-14 06:34] LABS: GLUCOMETER DEV NAME(LOC) 6N.1; GLUCOSE,POINT OF CARE 95 MG/DL (70-110)
[2020-05-14 06:54] LABS: CREATININE 1.32 mg/dL (0.60-1.30); POTASSIUM 4.2 mmol/L (3.5-5.1)
[2020-05-14 06:55] LABS: ALBUMIN 2.8 g/dL (3.4-5.0); BILIRUBIN,TOTAL 0.3 mg/dL (0.1-1.0); C-REACTIVE PROTEIN QUANT 1.49 mg/dL (0.00-0.30); TOTAL PROTEIN, SERUM 6.8 g/dL (6.4-8.2)
[2020-05-14 07:45] VITALS: BP 127/76
[2020-05-14] MEDS: DOXAZOSIN MESYLATE 2 MG TABLET PO SCH (08:00)
[2020-05-14] MEDS: MONTELUKAST SODIUM 10 MG TABLET PO SCH (08:00)
[2020-05-14] MEDS: CHOLECALCIFEROL (VIT D3) 2,000 UNITS [50 MCG] TABLET PO SCH (08:00)
[2020-05-14] MEDS: ASPIRIN 81 MG EC TABLET PO SCH (08:00)
[2020-05-14] MEDS: ATORVASTATIN CALCIUM 40 MG TABLET PO SCH (08:00)
[2020-05-14] MEDS: VANCOMYCIN HCL 1.25 GM in DEXTROSE 5%-WATER 250 ML IV SCH ×2 (08:00→21:15)
[2020-05-14] MEDS: DOCUSATE SODIUM 100 MG CAPSULE PO SCH ×2 (08:00→21:14)
[2020-05-14] MEDS: PANTOPRAZOLE SODIUM 40 MG DR TABLET PO SCH (08:00)
[2020-05-14] MEDS: LEVOFLOXACIN 750 MG TABLET PO SCH (08:00)
[2020-05-14 11:17] VITALS: BP 113/65
[2020-05-14 11:47] LABS: GLUCOMETER DEV NAME(LOC) 6N.1; GLUCOSE,POINT OF CARE 116 MG/DL (70-110)
[2020-05-14 15:23] VITALS: BP 121/71
[2020-05-14 17:45] LABS: GLUCOMETER DEV NAME(LOC) 6N.1; GLUCOSE,POINT OF CARE 102 MG/DL (70-110)
[2020-05-14 20:10] VITALS: BP 114/73
[2020-05-15] VITALS (7 sets, daily range): BP systolic 112–127; BP diastolic 59–87
[2020-05-15 06:40] LABS: GLUCOMETER DEV NAME(LOC) 6N.1; GLUCOSE,POINT OF CARE 110 MG/DL (70-110)
[2020-05-15 07:03] LABS: GLUCOMETER DEV NAME(LOC) 6N.1; GLUCOSE,POINT OF CARE 101 MG/DL (70-110)
[2020-05-15 07:49] LABS: CALCIUM, TOTAL 8.2 mg/dL (8.8-10.5); CREATININE 1.28 mg/dL (0.60-1.30); POTASSIUM 4.3 mmol/L (3.5-5.1); VANCOMYCIN,RANDOM 14.6 mcg/mL (25.0-50.0)
[2020-05-15] MEDS: HEPARIN SODIUM,PORCINE 5,000 UNITS/ML VIAL SQ SCH ×4 (08:00→16:00)
[2020-05-15] MEDS: ATORVASTATIN CALCIUM 40 MG TABLET PO SCH (08:26)
[2020-05-15] MEDS: VANCOMYCIN HCL 1.25 GM in DEXTROSE 5%-WATER 250 ML IV SCH (08:26)
[2020-05-15] MEDS: MONTELUKAST SODIUM 10 MG TABLET PO SCH (08:27)
[2020-05-15] MEDS: DOCUSATE SODIUM 100 MG CAPSULE PO SCH ×2 (08:27→20:08)
[2020-05-15] MEDS: ASPIRIN 81 MG EC TABLET PO SCH (08:27)
[2020-05-15] MEDS: LEVOFLOXACIN 750 MG TABLET PO SCH (08:28)
[2020-05-15] MEDS: CHOLECALCIFEROL (VIT D3) 2,000 UNITS [50 MCG] TABLET PO SCH (08:28)
[2020-05-15] MEDS: DOXAZOSIN MESYLATE 2 MG TABLET PO SCH (08:28)
[2020-05-15] MEDS: PANTOPRAZOLE SODIUM 40 MG DR TABLET PO SCH (08:29)
[2020-05-15] MEDS ORDERED: SODIUM CHLORIDE 0.9% 1,000 ML IV ONE (10:30)
[2020-05-15 14:38] LABS: GLUCOMETER DEV NAME(LOC) 6N.1; GLUCOSE,POINT OF CARE 109 MG/DL (70-110)
[2020-05-15] MEDS ORDERED: GADOBUTROL 1 MMOL/ML 10 ML VIAL IVP ONE (14:44)
[2020-05-15 19:01] LABS: GLUCOMETER DEV NAME(LOC) 6N.1; GLUCOSE,POINT OF CARE 115 MG/DL (70-110)
[2020-05-15] MEDS: VANCOMYCIN HCL 1.5 GM in DEXTROSE 5%-WATER 250 ML IV SCH (20:08)
[2020-05-16] VITALS (7 sets, daily range): BP systolic 115–133; BP diastolic 60–78
[2020-05-16] MEDS: HEPARIN SODIUM,PORCINE 5,000 UNITS/ML VIAL SQ SCH ×3 (01:14→17:10)
[2020-05-16] MEDS: ACETAMINOPHEN 325 MG TABLET PO PRN ×2 (05:47→15:40)
[2020-05-16 07:16] LABS: BASOPHILS % (AUTO) 0.5 % (0.0-2.0); EOSINOPHILS % (AUTO) 3.2 % (1.0-6.0); HEMATOCRIT 39.4 % (41-53); HEMOGLOBIN 13.4 g/dL (13.5-17.5); LYMPHOCYTES # (AUTO) 1.2 K/uL (1.0-4.8); MEAN CORPUSCULAR HGB CONC 33.9 G/dL (31.0-37.0); MEAN CORPUSCULAR VOLUME 88 fL (80-100); MONOCYTES # (AUTO) 0.7 K/uL (0.1-1.0); MONOCYTES % (AUTO) 15.2 % (2.0-9.0); NEUTROPHILS # (AUTO) 2.4 K/uL (1.8-7.7); NEUTROPHILS % (AUTO) 54.1 % (40.0-70.0); PLATELET COUNT (AUTO) 179 K/uL (150-450); RED BLOOD CELL COUNT(AUTO) 4.46 MIL/uL (4.50-5.90); RED CELL DISTRIBUTION WIDTH 13.3 % (11.5-14.5)
[2020-05-16 07:55] LABS: ANION GAP 8 mmol/L (8-16); C-REACTIVE PROTEIN QUANT 2.75 mg/dL (0.00-0.30); CALCIUM, TOTAL 7.8 mg/dL (8.8-10.5); CARBON DIOXIDE 26 mmol/L (22-29); CHLORIDE 98 mmol/L (98-107); CREATININE 1.17 mg/dL (0.60-1.30); FERRITIN 393 ng/mL (26-388); GLOMERULAR FILTR. RATE CALC > 60 mL/min (>60); GLUCOSE,RANDOM 101 mg/dL (70-110); POTASSIUM 3.9 mmol/L (3.5-5.1); SODIUM SERUM 132 mmol/L (136-145); UREA NITROGEN, BLOOD 12 mg/dL (7-18)
[2020-05-16] MEDS: VANCOMYCIN HCL 1.5 GM in DEXTROSE 5%-WATER 250 ML IV SCH ×2 (08:27→20:10)
[2020-05-16] MEDS: ASPIRIN 81 MG EC TABLET PO SCH (08:28)
[2020-05-16] MEDS: CHOLECALCIFEROL (VIT D3) 2,000 UNITS [50 MCG] TABLET PO SCH (08:28)
[2020-05-16] MEDS: PANTOPRAZOLE SODIUM 40 MG DR TABLET PO SCH (08:28)
[2020-05-16] MEDS: LEVOFLOXACIN 750 MG TABLET PO SCH (08:28)
[2020-05-16] MEDS: DOCUSATE SODIUM 100 MG CAPSULE PO SCH ×2 (08:28→20:11)
[2020-05-16] MEDS: ATORVASTATIN CALCIUM 40 MG TABLET PO SCH (08:28)
[2020-05-16] MEDS: DOXAZOSIN MESYLATE 2 MG TABLET PO SCH (08:28)
[2020-05-16] MEDS: MONTELUKAST SODIUM 10 MG TABLET PO SCH (08:28)
[2020-05-16 09:25] LABS: GLUCOMETER DEV NAME(LOC) 6N.1; GLUCOSE,POINT OF CARE 122 MG/DL (70-110)
[2020-05-16 09:25] LABS: GLUCOMETER DEV NAME(LOC) 6N.1; GLUCOSE,POINT OF CARE 100 MG/DL (70-110)
[2020-05-16] MEDS ORDERED: GADOBUTROL 1 MMOL/ML 10 ML VIAL IVP ONE (14:12)
[2020-05-16] MEDS: BENZONATATE 100 MG CAPSULE PO PRN (17:11)
[2020-05-16] MEDS: INSULIN LISPRO 100 UNITS/ML SQ PRN (17:16)
[2020-05-16 18:55] LABS: GLUCOMETER DEV NAME(LOC) 6N.2; GLUCOSE,POINT OF CARE 155 MG/DL (70-110)
[2020-05-17] MEDS: HEPARIN SODIUM,PORCINE 5,000 UNITS/ML VIAL SQ SCH ×4 (00:03→23:02)
[2020-05-17] MEDS: ACETAMINOPHEN 325 MG TABLET PO PRN ×2 (00:03→05:40)
[2020-05-17 05:36] VITALS: BP 138/68
[2020-05-17] MEDS: BENZONATATE 100 MG CAPSULE PO PRN (05:41)
[2020-05-17 07:03] LABS: BASOPHILS % (AUTO) 0.5 % (0.0-2.0); HEMATOCRIT 41.4 % (41-53); HEMOGLOBIN 13.4 g/dL (13.5-17.5); LYMPHOCYTES # (AUTO) 1.2 K/uL (1.0-4.8); LYMPHOCYTES % (AUTO) 28.6 % (22.0-44.0); MEAN CORPUSCULAR HGB CONC 32.5 G/dL (31.0-37.0); MEAN CORPUSCULAR VOLUME 89 fL (80-100); MONOCYTES # (AUTO) 0.6 K/uL (0.1-1.0); MONOCYTES % (AUTO) 13.2 % (2.0-9.0); NEUTROPHILS # (AUTO) 2.2 K/uL (1.8-7.7); NEUTROPHILS % (AUTO) 52.7 % (40.0-70.0); PLATELET COUNT (AUTO) 173 K/uL (150-450); RED BLOOD CELL COUNT(AUTO) 4.63 MIL/uL (4.50-5.90); RED CELL DISTRIBUTION WIDTH 13.2 % (11.5-14.5)
[2020-05-17 07:22] LABS: ALANINE AMINOTRANSFERASE 50 U/L (12-78); ALBUMIN 2.5 g/dL (3.4-5.0); ALKALINE PHOSPHATASE 70 U/L (46-116); ANION GAP 7 mmol/L (8-16); ASPARTATE AMINOTRANSFERASE 38 U/L (15-37); BILIRUBIN,TOTAL 0.4 mg/dL (0.1-1.0); C-REACTIVE PROTEIN QUANT 3.82 mg/dL (0.00-0.30); CALCIUM, TOTAL 7.6 mg/dL (8.8-10.5); CARBON DIOXIDE 25 mmol/L (22-29); CHLORIDE 100 mmol/L (98-107); CREATININE 0.99 mg/dL (0.60-1.30); FERRITIN 375 ng/mL (26-388); GLOMERULAR FILTR. RATE CALC > 60 mL/min (>60); GLUCOSE,RANDOM 124 mg/dL (70-110); POTASSIUM 3.6 mmol/L (3.5-5.1); SODIUM SERUM 132 mmol/L (136-145); TOTAL PROTEIN, SERUM 6.3 g/dL (6.4-8.2); UREA NITROGEN, BLOOD 8 mg/dL (7-18)
[2020-05-17] MEDS: VANCOMYCIN HCL 1.5 GM in DEXTROSE 5%-WATER 250 ML IV SCH (08:00)
[2020-05-17 08:18] VITALS: BP 125/69
[2020-05-17] MEDS: MONTELUKAST SODIUM 10 MG TABLET PO SCH (08:28)
[2020-05-17] MEDS: PANTOPRAZOLE SODIUM 40 MG DR TABLET PO SCH (08:29)
[2020-05-17] MEDS: DOCUSATE SODIUM 100 MG CAPSULE PO SCH ×2 (08:29→21:15)
[2020-05-17] MEDS: ATORVASTATIN CALCIUM 40 MG TABLET PO SCH (08:29)
[2020-05-17] MEDS: LEVOFLOXACIN 750 MG TABLET PO SCH (08:29)
[2020-05-17] MEDS: DOXAZOSIN MESYLATE 2 MG TABLET PO SCH (08:29)
[2020-05-17] MEDS: ASPIRIN 81 MG EC TABLET PO SCH (08:29)
[2020-05-17] MEDS: CHOLECALCIFEROL (VIT D3) 2,000 UNITS [50 MCG] TABLET PO SCH (08:29)
[2020-05-17] MEDS ORDERED: INDIUM IN-111 OXYQUINOLINE/.5MCL ISOTOPE 1 EA INJ INJ ONE (11:00)
[2020-05-17 14:27] LABS: GLUCOMETER DEV NAME(LOC) 6N.2; GLUCOSE,POINT OF CARE 88 MG/DL (70-110)
[2020-05-17 14:27] LABS: GLUCOMETER DEV NAME(LOC) 6N.2; GLUCOSE,POINT OF CARE 92 MG/DL (70-110)
[2020-05-17 15:55] VITALS: BP 122/78
[2020-05-17 16:02] LABS: BILIRUBIN,URINE NEGATIVE (NEGATIVE); GLUCOSE, URINE (UA) NEGATIVE (NEGATIVE); KETONES,URINE NEGATIVE (NEGATIVE); LEUKOCYTE ESTERASE ,URINE NEGATIVE (NEGATIVE); NITRATE,URINE NEGATIVE (NEGATIVE); OCCULT BLOOD,URINE NEGATIVE (NEGATIVE); PH,URINE 6.5 (5.0-8.0); UROBILINOGEN,URINE 0.2 mg/dL (<=1.0)
[2020-05-17 16:18] LABS: APPEARANCE,URINE CLEAR (CLEAR); PROTEIN,URINE NEGATIVE (NEGATIVE)
[2020-05-17 19:52] VITALS: BP 127/76
[2020-05-18 07:23] LABS: BASOPHILS % (AUTO) 0.6 % (0.0-2.0); EOSINOPHILS % (AUTO) 2.6 % (1.0-6.0); HEMATOCRIT 40.6 % (41-53); HEMOGLOBIN 13.6 g/dL (13.5-17.5); LYMPHOCYTES % (AUTO) 37.2 % (22.0-44.0); MEAN CORPUSCULAR HEMOGLOBIN 29.6 pg (26.0-34.0); MEAN CORPUSCULAR HGB CONC 33.5 G/dL (31.0-37.0); MEAN CORPUSCULAR VOLUME 88 fL (80-100); MONOCYTES # (AUTO) 0.9 K/uL (0.1-1.0); MONOCYTES % (AUTO) 15.8 % (2.0-9.0); NEUTROPHILS # (AUTO) 2.4 K/uL (1.8-7.7); NEUTROPHILS % (AUTO) 43.8 % (40.0-70.0); PLATELET COUNT (AUTO) 192 K/uL (150-450); RED BLOOD CELL COUNT(AUTO) 4.59 MIL/uL (4.50-5.90); RED CELL DISTRIBUTION WIDTH 13.2 % (11.5-14.5)
[2020-05-18 07:26] LABS: GLUCOMETER DEV NAME(LOC) 6N.2; GLUCOSE,POINT OF CARE 89 MG/DL (70-110)
[2020-05-18 07:56] LABS: ALANINE AMINOTRANSFERASE 46 U/L (12-78); ALBUMIN 2.4 g/dL (3.4-5.0); ALKALINE PHOSPHATASE 69 U/L (46-116); ANION GAP 11 mmol/L (8-16); ASPARTATE AMINOTRANSFERASE 35 U/L (15-37); BILIRUBIN,TOTAL 0.3 mg/dL (0.1-1.0); C-REACTIVE PROTEIN QUANT 5.59 mg/dL (0.00-0.30); CARBON DIOXIDE 25 mmol/L (22-29); CHLORIDE 99 mmol/L (98-107); CREATININE 1.14 mg/dL (0.60-1.30); FERRITIN 376 ng/mL (26-388); GLOMERULAR FILTR. RATE CALC > 60 mL/min (>60); GLUCOSE,RANDOM 86 mg/dL (70-110); POTASSIUM 3.8 mmol/L (3.5-5.1); SODIUM SERUM 135 mmol/L (136-145); TOTAL PROTEIN, SERUM 6.6 g/dL (6.4-8.2); UREA NITROGEN, BLOOD 10 mg/dL (7-18)
[2020-05-18] MEDS: PANTOPRAZOLE SODIUM 40 MG DR TABLET PO SCH (08:41)
[2020-05-18] MEDS: BENZONATATE 100 MG CAPSULE PO PRN ×2 (08:41→23:49)
[2020-05-18] MEDS: CHOLECALCIFEROL (VIT D3) 2,000 UNITS [50 MCG] TABLET PO SCH (08:41)
[2020-05-18] MEDS: DOXAZOSIN MESYLATE 2 MG TABLET PO SCH (08:41)
[2020-05-18] MEDS: ATORVASTATIN CALCIUM 40 MG TABLET PO SCH (08:41)
[2020-05-18] MEDS: DOCUSATE SODIUM 100 MG CAPSULE PO SCH ×2 (08:41→20:33)
[2020-05-18] MEDS: ASPIRIN 81 MG EC TABLET PO SCH (08:41)
[2020-05-18] MEDS: MONTELUKAST SODIUM 10 MG TABLET PO SCH (08:41)
[2020-05-18] MEDS: HEPARIN SODIUM,PORCINE 5,000 UNITS/ML VIAL SQ SCH ×3 (08:42→23:29)
[2020-05-18 09:50] VITALS: BP 137/79
[2020-05-18 11:52] LABS: GLUCOMETER DEV NAME(LOC) 6S.1; GLUCOSE,POINT OF CARE 97 MG/DL (70-110)
[2020-05-18 11:52] LABS: GLUCOMETER DEV NAME(LOC) 6S.1; GLUCOSE,POINT OF CARE 122 MG/DL (70-110)
[2020-05-18 11:52] LABS: GLUCOMETER DEV NAME(LOC) 6S.1; GLUCOSE,POINT OF CARE 103 MG/DL (70-110)
[2020-05-18 12:16] VITALS: BP 127/78
[2020-05-18] MEDS ORDERED: REMDESIVIR **INVESTIGATIONAL** 200 MG in SODIUM CHLORIDE 0.9% 210 ML IV ONE (16:30)
[2020-05-18 17:13] LABS: GLUCOMETER DEV NAME(LOC) 6N.2; GLUCOSE,POINT OF CARE 97 MG/DL (70-110)
[2020-05-18 17:20] VITALS: BP 118/68
[2020-05-18 20:31] LABS: GLUCOMETER DEV NAME(LOC) 6S.1; GLUCOSE,POINT OF CARE 90 MG/DL (70-110)
[2020-05-18] MEDS: VANCOMYCIN HCL 1.5 GM in DEXTROSE 5%-WATER 250 ML IV SCH (20:33)
[2020-05-18 20:50] VITALS: BP 122/75
[2020-05-18] MEDS ORDERED: SODIUM CHLORIDE 0.9% 500 ML IV ONE (23:03)
[2020-05-18] MEDS: ACETAMINOPHEN 325 MG TABLET PO PRN (23:49)
[2020-05-18 23:52] VITALS: BP 115/76
[2020-05-19 00:07] LABS: GLUCOMETER DEV NAME(LOC) 6S.1; GLUCOSE,POINT OF CARE 135 MG/DL (70-110)
[2020-05-19 04:00] VITALS: BP 122/71
[2020-05-19] MEDS: ACETAMINOPHEN 325 MG TABLET PO PRN (04:37)
[2020-05-19] MEDS: DOXAZOSIN MESYLATE 2 MG TABLET PO SCH (08:13)
[2020-05-19] MEDS: DOCUSATE SODIUM 100 MG CAPSULE PO SCH (08:13)
[2020-05-19] MEDS: BENZONATATE 100 MG CAPSULE PO PRN (08:13)
[2020-05-19] MEDS: CHOLECALCIFEROL (VIT D3) 2,000 UNITS [50 MCG] TABLET PO SCH (08:14)
[2020-05-19] MEDS: ASPIRIN 81 MG EC TABLET PO SCH (08:14)
[2020-05-19] MEDS: MONTELUKAST SODIUM 10 MG TABLET PO SCH (08:15)
[2020-05-19] MEDS: ATORVASTATIN CALCIUM 40 MG TABLET PO SCH (08:15)
[2020-05-19] MEDS: HEPARIN SODIUM,PORCINE 5,000 UNITS/ML VIAL SQ SCH (08:15)
[2020-05-19] MEDS: VANCOMYCIN HCL 1.5 GM in DEXTROSE 5%-WATER 250 ML IV SCH (08:16)
[2020-05-19 08:31] LABS: HEMATOCRIT 39.4 % (41-53); HEMOGLOBIN 13.3 g/dL (13.5-17.5); MEAN CORPUSCULAR HEMOGLOBIN 29.8 pg (26.0-34.0); MEAN CORPUSCULAR HGB CONC 33.8 G/dL (31.0-37.0); MEAN CORPUSCULAR VOLUME 88 fL (80-100); NEUTROPHILS % (AUTO) 64.8 % (40.0-70.0); PLATELET COUNT (AUTO) 216 K/uL (150-450); RED BLOOD CELL COUNT(AUTO) 4.48 MIL/uL (4.50-5.90); RED CELL DISTRIBUTION WIDTH 13.4 % (11.5-14.5)
[2020-05-19 08:32] LABS: BASOPHILS % (AUTO) 0.4 % (0.0-2.0); EOSINOPHILS % (AUTO) 4.8 % (1.0-6.0); LYMPHOCYTES # (AUTO) 0.8 K/uL (1.0-4.8); MONOCYTES # (AUTO) 0.7 K/uL (0.1-1.0); NEUTROPHILS # (AUTO) 3.2 K/uL (1.8-7.7)
[2020-05-19 08:45] VITALS: BP 121/70
[2020-05-19 09:08] LABS: ALANINE AMINOTRANSFERASE 57 U/L (12-78); ALBUMIN 2.4 g/dL (3.4-5.0); ALKALINE PHOSPHATASE 77 U/L (46-116); ANION GAP 10 mmol/L (8-16); ASPARTATE AMINOTRANSFERASE 53 U/L (15-37); BILIRUBIN,TOTAL 0.3 mg/dL (0.1-1.0); C-REACTIVE PROTEIN QUANT 6.75 mg/dL (0.00-0.30); CALCIUM, TOTAL 7.6 mg/dL (8.8-10.5); CARBON DIOXIDE 26 mmol/L (22-29); CHLORIDE 100 mmol/L (98-107); FERRITIN 422 ng/mL (26-388); GLOMERULAR FILTR. RATE CALC > 60 mL/min (>60); GLUCOSE,RANDOM 98 mg/dL (70-110); POTASSIUM 3.8 mmol/L (3.5-5.1); SODIUM SERUM 136 mmol/L (136-145); TOTAL PROTEIN, SERUM 6.6 g/dL (6.4-8.2); UREA NITROGEN, BLOOD 13 mg/dL (7-18)
[2020-05-19] MEDS: PANTOPRAZOLE SODIUM 40 MG DR TABLET PO SCH (12:12)
[2020-05-19 12:17] VITALS: BP 108/72
[2020-05-19 12:37] LABS: GLUCOMETER DEV NAME(LOC) 6S.1; GLUCOSE,POINT OF CARE 129 MG/DL (70-110)
[2020-05-19 17:11] VITALS: BP 119/76
[2020-05-19 17:12] LABS: GLUCOMETER DEV NAME(LOC) 6N.2; GLUCOSE,POINT OF CARE 108 MG/DL (70-110)
[2020-05-19] MEDS ORDERED: REMDESIVIR **INVESTIGATIONAL** 100 MG in SODIUM CHLORIDE 0.9% 230 ML IV SCH (18:00)
== END 2020-05-19 17:10 | disposition left against medical advice (07) | DRG 720 ==
LOC: EMS 01:46 → 6N 16:04 → UNDOADMIN 18:53 → 4E 05-12 15:07 → 6N 05-16 14:33
PROVIDERS: ADMIT Internal Medicine; ATTEND Internal Medicine
DX: A41.89 Other specified sepsis (principal); U07.1 COVID-19; N17.9 Acute kidney failure, unspecified; E44.0 Moderate protein-calorie malnutrition; E11.40 Type 2 diabetes mellitus with diabetic neuropathy, unspecified; L03.012 Cellulitis of left finger; G40.909 Epilepsy, unspecified, not intractable, without status epilepticus; E78.5 Hyperlipidemia, unspecified; I10 Essential (primary) hypertension; Z79.84 Long term (current) use of oral hypoglycemic drugs; J44.9 Chronic obstructive pulmonary disease, unspecified; K21.9 Gastro-esophageal reflux disease without esophagitis; I69.351 Hemiplegia and hemiparesis following cerebral infarction affecting right dominant side; J12.89 Other viral pneumonia; J44.0 Chronic obstructive pulmonary disease with (acute) lower respiratory infection; E78.00 Pure hypercholesterolemia, unspecified; F17.210 Nicotine dependence, cigarettes, uncomplicated; Z53.29 Procedure and treatment not carried out because of patient's decision for other reasons
CPT/HCPCS: 71260; 72193; 73218; 74160; 78806; 82728; 84145; 85379; 86140; 86850; 86900; 86901; 87040; 87081; 93306; A9547; A9585; G0378; J0696; J1644; J3370; J7030; J7040; J7050; J7060

== ENCOUNTER 2024-05-13 07:18 | Day surgery (SDC) | payer OTHER ==
[~2024-05-13] VITALS: Ht 167.6 cm; Wt 93.0 kg
[~2024-05-13 07:18] MED LIST changes: -DOXA2TAB PO; +DOXA2TAB86 PO; -FLUC100T PO; +FLUC100T68 PO; -METF-805 PO; +METF-890 PO; -MONT5TAB13 PO; +MONT5TAB80 PO
[2024-05-13] MEDS ORDERED: LIDOCAINE 2% 11 ML JELLY TP ONE (07:19)
[2024-05-13] MEDS ORDERED: LIDOCAINE 4% 50 ML SOLUTION TP ONE (07:19)
[2024-05-13] MEDS ORDERED: ALBUTEROL SULFATE 2.5 MG/0.5 ML NEB SOLUTION NEB ONE (07:19)
[2024-05-13] MEDS ORDERED: BENZOCAINE 20% 50 MCG/SPRAY 57 GM TP ONE (07:19)
[2024-05-13] MEDS ORDERED: ALBU18HF12 IH (07:37)
[2024-05-13] MEDS ORDERED: FLUT1BLS15 IH (07:37)
[2024-05-13] MEDS ORDERED: SODI44SP18 NASAL (07:37)
[2024-05-13] MEDS ORDERED: METO-408 PO (07:37)
[2024-05-13] MEDS ORDERED: FLUT16H NASAL (07:37)
[2024-05-13] MEDS ORDERED: CHOL10002 PO (07:37)
[2024-05-13] MEDS ORDERED: IPRA3AMP24 IH (07:37)
[2024-05-13] MEDS ORDERED: MIDAZOLAM HCL 2 MG/2 ML VIAL ONE (07:40)
[2024-05-13] MEDS ORDERED: FentaNYL CITRATE PF 100 MCG/2 ML VIAL ONE (07:41)
[2024-05-13] MEDS: SODIUM CHLORIDE 0.9% 1,000 ML IV ONE (08:32)
[2024-05-13 09:35] VITALS: PULSE 85; RESP 18; O2SAT 94
[2024-05-13] MEDS ORDERED: MethylPREDNISolone SOD SUCC 125 MG/2 ML VIAL ONE (10:13)
[2024-05-13] MEDS: MethylPREDNISolone SOD SUCC 125 MG/2 ML VIAL IVP ONE (10:14)
== END 2024-05-13 11:20 | disposition home or self-care (01) ==
LOC: SURGERY 07:18
PROVIDERS: ATTEND Internal Medicine Critical Care Medicine
DX: R05.3 Chronic cough (principal); R04.2 Hemoptysis; J98.8 Other specified respiratory disorders; J84.10 Pulmonary fibrosis, unspecified; J98.09 Other diseases of bronchus, not elsewhere classified; R06.00 Dyspnea, unspecified; E11.9 Type 2 diabetes mellitus without complications; J44.9 Chronic obstructive pulmonary disease, unspecified; I10 Essential (primary) hypertension; I20.9 Angina pectoris, unspecified; Z86.16 Personal history of COVID-19; Z85.21 Personal history of malignant neoplasm of larynx; Z79.84 Long term (current) use of oral hypoglycemic drugs; Z79.82 Long term (current) use of aspirin; Z79.899 Other long term (current) drug therapy; Z98.818 Other dental procedure status; Z98.890 Other specified postprocedural states
CPT/HCPCS: 31623; 87206; 87101; 87220; 87070; 88108; 31624; 71045; 87015; J3010; J2250; J2919; Q9967; J7030; J7613; Z7610